=== PATIENT | male | born 1965 | race Caucasian/White ===

== ENCOUNTER 2024-05-05 09:25 | Day surgery (SDC) | payer OTHER ==
--- NOTE | 2024-05-05 08:26 | HP ---
HISTORY AND PHYSICAL HISTORY OF PRESENT ILLNESS: No prior colonoscopy. No bloody stools. No change in bowel habits. No new pain. Family history negative for colon cancer. Needs screening colonoscopy. PAST MEDICAL HISTORY: Hyperlipidemia. HOME MEDICATIONS: Ezetimibe. ALLERGIES: No known drug allergies. PAST SURGICAL HISTORY: Had tonsillectomy in the past. Had colon resection for an abscess in the past. Had inguinal hernia repair in the past. Had an aneurysm repair in the past. SOCIAL HISTORY: One pack a day smoker. No alcohol abuse. FAMILY HISTORY: Hypertension, heart disease. Also chronic renal failure. REVIEW OF SYSTEMS: Twelve systems reviewed. No chest pain or palpitations. Other systems negative or noncontributory as above and per preadmission questionnaire. PHYSICAL EXAMINATION: GENERAL: Height 5 feet 10 inches. BMI 17.14. No acute distress. HEENT: Sclerae nonicteric. NECK: No JVD. CARDIOVASCULAR: Regular rate and rhythm. RESPIRATORY: Equal excursion, nonlabored breathing. ABDOMEN: Soft. SKIN: Dry. EXTREMITIES: No cyanosis or edema. NEUROLOGIC: Alert and oriented. PSYCHIATRIC: Appropriate mood and affect. RECTAL: Deferred until diagnostic exam. IMPRESSION: Needs screening colonoscopy. I feel the patient is a candidate. Risks were explained in detail including but not limited to bleeding or infection, risk of bowel injury or perforation, risk of misdiagnosis or nondiagnosis, risk of incomplete exam possibly requiring barium swallow or other studies or procedure, risk of bowel prep but not limited to. Otherwise, continue medications for hyperlipidemia. Will proceed with outpatient colonoscopy under MAC anesthesia.
[2024-05-05] MEDS ORDERED: Lactated Ringers 1,000 ML IV ONE ×2 (09:47→13:14)
[2024-05-05] MEDS: Lactated Ringers 1,000 ML IV SCH (11:00)
[2024-05-05] MEDS ORDERED: DIPRIVAN 200 MG/20 ML IV ONE ×2 (12:35→12:56)
[2024-05-05] MEDS ORDERED: Versed 2 MG/2 ML Injection ONE (12:35)
[2024-05-05 13:45] VITALS: RESP 16; TEMP 97.7
[2024-05-05 13:57] VITALS: BP 159/89; PULSE 77; O2SAT 99
--- NOTE | 2024-05-06 12:07 | OP ---
SURGERY DATE/TIME: 05/05/2024 6721 - [id number] PREOPERATIVE DIAGNOSIS: Need for screening colonoscopy. POSTOPERATIVE DIAGNOSES: 1) Fair bowel prep. 2) ASA class 2. 3) Multiple polyps, cecum, ascending colon, transverse, sigmoid, and rectum. PROCEDURES: 1) Colonoscopy to cecum. 2) Hot biopsy polypectomy of cecal polyp. 3) Hot snare polypectomy of approximately 4 mm ascending colon polyp. 4) Hot biopsy polypectomy of transverse colon polyp. 5) Hot snare polypectomy of an additional transverse colon polyp. 6) Hot snare polypectomy of sigmoid colon polyp. 7) Hot biopsy polypectomy of 4 other sigmoid colon polyps. 8) Hot biopsy polypectomy of rectal polyp. 9) Hot snare polypectomy of 3 mm additional rectal polyp, removed with hot snare polypectomy. SURGEON: Ronald Myers MD. ANESTHESIA: MAC. ESTIMATED BLOOD LOSS: Minimal. INDICATIONS: As noted above. DESCRIPTION OF PROCEDURE AND FINDINGS: MAC anesthesia was induced. After official time-out and no disagreement with planned procedure, digital rectal exam did not reveal any rectal masses. Videocolonoscope was inserted and passed up through the slightly tortuous sigmoid, descending, transverse, and ascending colon. With external pressure, scope passed around the cecum. Appendiceal orifice and valve well visualized and photo documented. Prep overall was fair, a little bit of liquidy semisolid stool throughout the colon, suctioned and irrigated clear as possible. This was slightly limited exam for very small lesions with a small polyp adjacent to the appendiceal orifice and the cecum and was removed with hot biopsy polypectomy. Good hemostasis noted. The scope pulled back to ascending colon. There was a 4 mm pedunculated polyp that was removed with hot snare polypectomy and brief bursts of cautery. Good hemostasis noted. Specimen was retrieved. The scope pulled back in the transverse colon, where a polyp was removed with hot biopsy polypectomy. Additional polyp removed with hot snare polypectomy. The scope pulled back to the sigmoid colon, where a couple of polyps were removed, 1 or 2 polyps removed with hot snare polypectomy with 2 removed with snare, 3 removed with hot biopsy polypectomy. Good hemostasis noted. Proximal rectal polyp was removed with hot biopsy polypectomy. A 3 mm polyp in the mid rectum was removed with hot snare polypectomy and vigorous cautery. Good hemostasis noted. Patient tolerated the procedure well. Findings discussed with family in the waiting area. We will see him back in the office next week. Withdrawal time was approximately 14 minutes.
== END 2024-05-05 14:06 | disposition home or self-care (01) ==
LOC: SDC 09:25
PROVIDERS: ATTEND Surgery
DX: Z12.11 Encounter for screening for malignant neoplasm of colon (principal); D12.7 Benign neoplasm of rectosigmoid junction; D12.2 Benign neoplasm of ascending colon; D12.0 Benign neoplasm of cecum; D12.5 Benign neoplasm of sigmoid colon; D12.3 Benign neoplasm of transverse colon
CPT/HCPCS: J2250; J2704